=== PATIENT | male | born 1995 | race Caucasian/White ===

== ENCOUNTER 2022-09-28 08:48 | Emergency (ER) | payer MEDICAID ==
[~2022-09-28] VITALS: Ht 180.3 cm; Wt 81.6 kg
[2022-09-28 09:18] VITALS: BP_SYST 159
--- NOTE | 2022-09-28 09:22 | NUR ---
Patient triaged and placed in waiting room. VSS and patient appears in no acute distress at this time. Accompanied by SELF, awaiting available bed, and MD notified of need for MSE.
--- NOTE | 2022-09-28 09:45 | NUR ---
ER DR. ORTEGA EXAMINING PT
[2022-09-28 10:23] LABS: BASOPHILS # (AUTO) 0.1 K/uL (0.0-0.2); BASOPHILS % (AUTO) 0.8 % (0.0-2.0); EOSINOPHILS # (AUTO) 0.1 K/uL (0.0-0.4); EOSINOPHILS % (AUTO) 0.7 % (0.0-4.0); HEMATOCRIT 44.6 % (36-54); HEMOGLOBIN 15.4 g/dL (14.0-18.0); LYMPHOCYTES # (AUTO) 1.6 K/uL (1.0-5.5); LYMPHOCYTES % (AUTO) 15.8 % (20.5-51.5); MEAN CORPUSCULAR HEMOGLOBIN 30 pg (27-31); MEAN CORPUSCULAR HGB CONC 35 % (32-36); MEAN CORPUSCULAR VOLUME 87 fL (79.0-98.0); MONOCYTES # (AUTO) 0.8 K/uL (0.0-1.0); MONOCYTES % (AUTO) 8.4 % (1.7-9.3); NEUTROPHILS # (AUTO) 7.3 K/uL (1.8-7.7); NEUTROPHILS % (AUTO) 74.3 % (40.0-70.0); PLATELET COUNT (AUTO) 291 K/uL (130-430); RED BLOOD CELL COUNT(AUTO) 5.13 MIL/uL (4.2-6.2); RED CELL DISTRIBUTION WIDTH 13.1 % (9.0-15.0); WHITE BLOOD COUNT (AUTO) 9.8 K/uL (4.8-10.8)
[2022-09-28 10:39] LABS: CALCIUM 8.7 mg/dL (8.4-11.0); CREATININE 0.87 mg/dL (0.55-1.30)
[2022-09-28 10:43] LABS: ALBUMIN 4.1 g/dL (3.4-4.8); C-REACTIVE PROTEIN QUANT 2.4 mg/dL (0-0.5)
[2022-09-28] MEDS ORDERED: CEPH250C PO (11:26)
[2022-09-28] MEDS ORDERED: IBUP-1971 PO (11:26)
[2022-09-28] MEDS ORDERED: OFLO5DRO6 EACH EYE (11:26)
--- NOTE | 2022-09-28 11:49 | NUR ---
Patient given written and verbal discharge instructions and verbalizes understanding. ER MD discussed with patient the results and treatment provided. Patient in stable condition. ID arm band removed. Rx of KEFLEX, IBUPROFEN AND OCUFLOX DROPS given. Patient educated on pain management and to follow up with PMD. Pain Scale 0/10. Opportunity for questions provided and answered. Medication side effect fact sheet provided.
[2022-09-28 11:50] VITALS: BP_SYST 159
== END 2022-09-28 11:50 | disposition home or self-care (01) ==
LOC: SED 08:48
DX: K11.20 Sialoadenitis, unspecified (principal); H10.32 Unspecified acute conjunctivitis, left eye; Z79.899 Other long term (current) drug therapy
CPT/HCPCS: 36415; 80053; 83605; 85025; 86140; 99283